=== PATIENT | female | born 1960 | race Caucasian/White ===

== ENCOUNTER 2022-01-11 06:37 | Emergency (ER) | payer OTHER, SELFPAY ==
[2022-01-11] VITALS (8 sets, daily range): BP systolic 116–142; BP diastolic 81–89; PULSE 71–83; RESP 18; TEMP 36.3; O2SAT 97–99; BMI 21.5
--- NOTE | 2022-01-11 07:04 | CRLHL7_ITS ---
For Patients: As a result of the Century Cures Act, medical imaging exams and procedure reports are released immediately into your electronic medical record. You may view this report before your referring provider. If you have questions, please contact your health care provider. INDICATION: Dizziness. TECHNIQUE: Head CT without intravenous contrast. Coronal and sagittal formats. COMPARISON: None available. FINDINGS: No intracranial hemorrhage, extra-axial collection, or evidence of acute cortical infarct. Age-appropriate ventricles and sulci. No mass effect or midline shift. The cranium is intact with hyperostosis frontalis interna. The paranasal sinuses and mastoid air cells are clear. IMPRESSION: No acute intracranial findings. Dictated by Maurice Bernard MD @ 01/11/2022 8:04:47 AM Please note that all CT scans at this facility use dose modulation, iterative reconstruction, and/or weight-based dosing when appropriate to reduce radiation dose to as low as reasonably achievable. Dictated by: Maurice Bernard MD @ 01/11/2022 08:04:52 (Electronically Signed)
--- NOTE | 2022-01-11 07:08 | ED.GENADULT ---
HPI - General Adult General Chief complaint: Dizziness/Vertigo Stated complaint: confused Time Seen by Provider: 01/11/22 07:04 History of Present Illness HPI narrative: Patient is 61-year-old woman who this morning with vertigo convince that she was on a boat overnight. She is not certain where she was on a boat or how she got home but is convinced and adamant that she was boat. She states that the dizziness is worse with movement. She has had no nausea no vomiting no fevers no chills. She is having a difficult time walking. She is had no other symptoms and has had no similar previous symptoms. She and her did have a limited amount of alcohol last night but no recent drug use. Related Data Home Medications Medication Instructions Recorded Confirmed celecoxib 200 mg capsule mg 01/11/22 trazodone 100 mg tablet mg 01/11/22 venlafaxine 150 mg mg PO 01/11/22 capsule,extended release 24 hr Allergies Allergy/AdvReac Type Severity Reaction Status Date / Time No Known Drug Allergies Allergy Verified 01/11/22 06:54 Review of Systems Status of ROS: Reports: 10 or more systems reviewed and unremarkable except as noted in History and below PFSH [facility] Social History Smoking Status: Never smoker Do you use any of these nicotine containing products: None Second hand tobacco smoke exposure: No How often do you have a drink containing alcohol: 4 or more times a week How many standard drinks containing alcohol do you have on a typical day: 1 or 2 How often do you have six or more drinks on one occasion: Never AUDIT-C Alcohol total score: 4 Non-prescribed substance use: denies use service: No Exam Narrative: Exam Narrative: EXAM GENERAL: Patient insisting keeping her eyes closed and is quite emotional that she was on a boat overnight EYES: No scleral icterus. ENT: Tympanic membranes and oropharynx normal. THYROID: no thyroid nodules or thyromegaly. LYMPH: No supraclavicular or cervical lymphadenopathy. SKIN: Visible skin seen during exam normal or with benign process only. EXT: No dependent lower extremity pedal edema. HEART: Regular rate and rhythm with no murmurs, rubs, or gallops. LUNGS: Clear to auscultation bilaterally with no crackles or wheezes. ABD: Soft, non tender, non distended. Neurologic cranial nerves 2-12 are grossly intact no focal defects. Const: Vital Signs, click to edit/add: Vital Signs - 24 hr 01/11/22 06:47 01/11/22 07:25 Temperature 97.4 F L Pulse Rate [Right Pulse Oximeter] 78 Respiratory Rate 18 18 Blood Pressure [Le ft Upper Arm] 128/88 118/83 Pulse Oximetry 98 99 Course Course Hospital Course: CT of the head, ETOH, urine toxicology, CBC, COVID testing and comprehensive metabolic panel as well as UA pending. Patient given 1 L of normal saline 4 mg of Zofran and 30 mg of Toradol. Vital Signs Vital signs: Initial Vital Signs Temperature 97.4 F L 01/11/22 06:47 Temperature Source Temporal Artery Scan 01/11/22 06:47 Pulse Rate 78 01/11/22 06:47 Respiratory Rate 18 01/11/22 06:47 Blood Pressure 128/88 01/11/22 06:47 Blood Pressure Mean 101 01/11/22 06:47 Blood Pressure Position Supine 01/11/22 06:47 Pulse Oximetry 98 01/11/22 06:47 Oxygen Delivery Method 01/11/22 06:47 Vital Signs Temperature 97.4 F L 01/11/22 06:47 Pulse Rate 78 01/11/22 06:47 Respiratory Rate 18 01/11/22 06:47 Blood Pressure 128/88 01/11/22 06:47 Pulse Oximetry 98 01/11/22 06:47 Temperature 97.4 F L 01/11/22 06:47 Pulse Rate 78 01/11/22 06:47 Respiratory Rate 18 01/11/22 07:25 Blood Pressure 118/83 01/11/22 07:25 Pulse Oximetry 99 01/11/22 07:25 Discharge Plan Discharge Prescriptions: No Action celecoxib 200 mg capsule 0RF venlafaxine 150 mg capsule,extended release 24hr PO 0RF trazodone 100 mg tablet 0RF Label Comments: TAKE 1 TO 2 TABLETS BY MOUTH AT BEDTIME FOR SLEEP Follow Up/Referrals: Natalia Alejandra MD [Primary Care Provider] -
--- NOTE | 2022-01-11 07:51 | ED.NURSE ---
dr montanez was informed of her headache 11/19 and that she was a hx of a pinched nerve that was treated yesterday by a chiropractor.
[2022-01-11 07:53] LABS: PCR FLU A NEGATIVE (Negative); PCR FLU B NEGATIVE (Negative); SARS PCR* Negative SARS-CoV-2 (Negative)
[2022-01-11 08:04] LABS: Albumin* 4.3 g/dL (3.3-5.0); Chloride* 106 mmol/L (96-114); Potassium* 3.8 mmol/L (3.6-5.1); Sodium* 138 mmol/L (135-149)
[2022-01-11 08:06] LABS: Creatinine* 0.9 mg/dL (0.5-1.5); Est. Creatinine Clearance* 52.49; Estimated Glomerular Filt Rate 72.28
[2022-01-11 08:07] LABS: Alanine Aminotransferase* 32 U/L (4-35); Alkaline Phosphatase* 94 U/L (40-150); Aspartate Amino Transferase* 41 U/L (12-35); Bilirubin Total* 0.5 mg/dL (0.1-1.5); Blood Urea Nitrogen* 16 mg/dL (7-30); Carbon Dioxide* 26 mmol/L (20-32); Glucose* 105 mg/dL (60-115)
[2022-01-11 08:08] LABS: Calcium* 9.3 mg/dL (8.4-10.6)
[2022-01-11] MEDS: 0.9 % SODIUM CHLORIDE 1000 ml 1,000 ML IV (08:09)
[2022-01-11] MEDS: ONDANSETRON 2 MG/ML inj 4 MG IVP ×2 (08:11→09:33)
[2022-01-11] MEDS: KETOROLAC 30 MG/ML inj IVP (08:12)
[2022-01-11 08:26] LABS: Ethanol* < 0.01 % (0.01-0.03)
[2022-01-11 08:30] LABS: Basophils Percent Auto 0.3 % (0.0-3.0); Eosinophils Percent Auto 0.8 % (0.0-7.0); Hematocrit 39.3 % (33.0-51.0); Hemoglobin* 13.6 gm/dL (12.0-16.0); Immature Granulocytes Pct Auto 0.3 %; Lymphocytes Percent Auto 37.9 % (20-44); Mean Corpuscular HGB Conc 35 gm/dL (32-36); Mean Corpuscular Hemoglobin 32 pg (26-34); Mean Corpuscular Volume 93 fL (80-100); Monocytes Percent Auto 7.4 % (0.0-11.0); Neutrophils Percent Auto 53.3 % (42.0-72.0); Platelet Count* 209 K/uL (140-440); Red Blood Count 4.24 m/uL (4.00-5.20); White Blood Count* 3.93 K/uL (4.50-11.00)
[2022-01-11 08:31] LABS: Slide Review Reflex Yes
[2022-01-11 08:32] LABS: Slide Review Acceptable Review (Acceptable)
[2022-01-11] MEDS: MECLIZINE HCL 25 MG TABLET PO (09:27)
== END 2022-01-11 10:56 | disposition home or self-care (01) ==
LOC: ED 10:37
PROVIDERS: Emergency Provider Internal Medicine; PCP Family Medicine
DX: H81.20 Vestibular neuronitis, unspecified ear (principal); R51.9 Headache, unspecified
CPT/HCPCS: 36415; 70450; 80053; 80306; 81003; 82077; 85025; 87502; 87635; 96374; 96375; 96376; 99283; 99284; A9270; J1885; J2405; J7030